=== PATIENT | male | born 1990 | race Caucasian/White ===

== ENCOUNTER 2019-04-29 17:38 | Emergency (ER) | payer SELFPAY ==
[2019-04-29 17:45] VITALS: BP 132/82
[2019-04-29] MEDS ORDERED: IPRATROPIUM/ALBUTEROL 0.5-2.5 MG/3 ML AMPUL NEB ONE (18:36)
[2019-04-29] MEDS ORDERED: CETIRIZINE 10 MG TABLET PO ONE (18:36)
--- NOTE | 2019-04-29 18:38 | ER Document Report ---
ED Medical Screen (RME) - General Chief Complaint: Asthma Exacerbation Stated Complaint: BREATHING PROBLEMS Time Seen by Provider: 04/29/19 18:31 Notes: Patient is a 28-year-old male who presents to the emergency department with a chief complaint of shortness of breath. His shortness of breath started last night. Patient has asthma, but is currently not on any medication. He states that he feels wheezy. He also has had an upper respiratory viral infection with rhinorrhea this past week. Exam: Inspiratory and expiratory wheezes noted in all lung castellanos. I have greeted and performed a rapid initial assessment of this patient. A com prehensive ED assessment and evaluation of the patient, analysis of test results and completion of medical decision making process will be conducted by an additional ED providers. TRAVEL OUTSIDE OF THE [place] IN LAST 30 DAYS: No - Related Data Allergies/Adverse Reactions: codeine [Codeine] Allergy (Verified 04/29/19 18:27) Penicillins Allergy (Verified 04/29/19 18:27) Past Medical History - Social History Chew tobacco use (# tins/day): No Frequency of alcohol use: None Drug Abuse: None Pulmonary Medical History: Reports: Hx Asthma Denies: Hx Tuberculosis Psychiatric Medical History: Reports: Hx Post Traumatic Stress Disorder Traumatic Medical History: Reports: Hx Fractures Past Surgical History: Reports: Hx Orthopedic Surgery - left elbow - Immunizations Immunizations up to date: Yes Hx Diphtheria, Pertussis, Tetanus Vaccination: Yes Physical Exam - Vital signs Vitals: Temp Pulse Resp BP Pulse Ox 98.7 F 94 16 132/82 H 96 04/29/19 17:44 04/29/19 17:44 04/29/19 17:44 04/29/19 17:44 04/29/19 17:44 Course - Vital Signs Vital signs: Temp Pulse Resp BP Pulse Ox 98.7 F 94 16 132/82 H 96 04/29/19 17:44 04/29/19 17:44 04/29/19 17:44 04/29/19 17:44 04/29/19 17:44
== END 2019-04-29 19:40 | disposition left against medical advice (07) ==
LOC: ER 17:38
DX: J45.901 Unspecified asthma with (acute) exacerbation (principal); Z88.6 Allergy status to analgesic agent; Z88.0 Allergy status to penicillin
CPT/HCPCS: J7620

== ENCOUNTER 2019-11-30 06:00 | Emergency (ER) | payer OTHER ==
[2019-11-30 06:16] VITALS: BP 124/81
[2019-11-30] MEDS ORDERED: CIPROFLOXACIN HCL/DEXAMETH OTIC DROP 7.5 ML AS ONE (06:52)
--- NOTE | 2019-11-30 06:54 | ER Document Report ---
HPI - HPI Time Seen by Provider: 11/30/19 06:44 Pain Level: 1 Context: Patient is a 29-year-old male that comes emergency department for chief complaint of an insect in the left ear. He states he felt a crawling, he states he was smacking at the ear, poured baby oil, tried to irrigate it with water, and then laid down on the side of the ear for a while. He states he did feel a vibration and it might have come out. He denies any current symptoms except some soreness of the left ear. He denies any daily medications or past medical history except for asthma. Past Medical History - General Information source: Patient - Social History Smoking Status: Current Every Day Smoker Frequency of alcohol use: None Drug Abuse: None Lives with: Family Family History: None Patient has suicidal ideation: No Patient has homicidal ideation: No Pulmonary Medical History: Reports: Hx Asthma Denies: Hx Tuberculosis Psychiatric Medical History: Reports: Hx Post Traumatic Stress Disorder Traumatic Medical History: Reports: Hx Fractures Past Surgical History: Reports: Hx Orthopedic Surgery - left elbow - Immunizations Immunizations up to date: Yes Hx Diphtheria, Pertussis, Tetanus Vaccination: Yes Vertical Provider Document - CONSTITUTIONAL General Appearance: WD/WN, No Apparent Distress - INFECTION CONTROL TRAVEL OUTSIDE OF THE [place] IN LAST 30 DAYS: No - HEENT HEENT: Atraumatic, Normocephalic. negative: Normal ENT Exam - There is some erythema of the canal in the left ear, no bleeding, no perforation of the tympanic membrane, no foreign body is seen. Otherwise unremarkable exam including oral pharyngeal and nasal exam. - NECK Neck: Normal Inspection - RESPIRATORY Respiratory: Breath Sounds Normal, No Respiratory Distress - CARDIOVASCULAR Cardiovascular: Regular Rate, Regular Rhythm - GI/ABDOMEN Gastrointestinal: Abdomen Soft, Abdomen Non-Tender - BACK Back: Normal Inspection - MUSCULOSKELETAL/EXTREMETIES Musculoskeletal/Extremeties: MAEW, FROM, Non-Tender - NEURO Level of Consciousness: Awake, Alert, Appropriate Motor/Sensory: No Motor Deficit, No Sensory Deficit - DERM Integumentary: Warm, Dry, No Rash Course - Re-evaluation Re-evalutation: Ear canal slightly erythematous, most likely from patient trying to get the bug out. No foreign body noted, no concerning injuries, no acute findings. Provided with eardrops to avoid infection after attempting to remove the foreign body, discussed follow-up and return precautions. Patient states appreciation and agreement. - Vital Signs Vital signs: Temp Pulse Resp BP Pulse Ox 97.5 F 72 18 124/81 100 11/30/19 06:15 11/30/19 06:15 11/30/19 06:15 11/30/19 06:15 11/30/19 06:15 Discharge - Discharge Clinical Impression: Foreign body in ear Qualifiers: Encounter type: initial encounter Laterality: left Qualified Code(s): T16.2XXA - Foreign body in left ear, initial encounter Condition: Stable Disposition: HOME, SELF-CARE Additional Instructions: No foreign body or insect was seen in the ear canal. I do recommend the eardrops as prescribed for the next 5 days, 4 drops twice a day. Take Tylenol or ibuprofen if needed for pain. Follow-up with primary care. Return for any concerning symptoms including severe pain, headache, vomiting, swelling, fever, or any other concerning symptoms. Forms: Return to Work
== END 2019-11-30 07:11 | disposition home or self-care (01) ==
LOC: ER 06:00
DX: T16.2XXA Foreign body in left ear, initial encounter (principal); X58.XXXA Exposure to other specified factors, initial encounter; J45.909 Unspecified asthma, uncomplicated; F17.200 Nicotine dependence, unspecified, uncomplicated
CPT/HCPCS: 99282; J3490